=== PATIENT | male | born 1995 | race Caucasian/White ===

== ENCOUNTER 2020-03-28 16:52 | Emergency (ER) | payer OTHER, SELFPAY ==
--- NOTE | ~2020-03-28 | XR_ITS ---
EXAMINATION: XR chest 2V EXAM DATE: 03/28/2020 17:32 INDICATION: Right-sided chest pain, symptoms 3 days. TECHNIQUE: Frontal and lateral projections of the chest obtained and reviewed. There is no prior claudia dy for comparison. FINDINGS: The lungs are clear. There are no pleural effusions. The cardiomediastinal silhouette is within normal limits. There is no pneumothorax suspected. The bones and soft tissues are unremarkab le. IMPRESSION: No acute cardiopulmonary findings. Reviewed, dictated and finalized at location A.
--- NOTE | 2020-03-28 16:53 | ECG_ITS ---
Measurements Intervals [place] Rate: 97 P: 21 [place]: 150 QRS: 38 QRSD: 89 T: -3 QT: 335 QTc: 426 Interpretive Statements SINUS RHYTHM DELAYED PRECORDIAL R/S TRANSITION NONSPECIFIC ST & T-WAVE ABNORMALITY- INFERIOR LEADS BASELINE ARTIFACT- III, AVF BORDERLINE ECG Electronically Signed On 03-28-2020 17:56:31 CDT by Miguel Wang D.O.
[2020-03-28 16:57] VITALS: BP 135/116; PULSE 95; RESP 18; TEMP 36.2; O2SAT 95
[2020-03-28 17:15] LABS: Basophils Percent Auto 0.3 % (0.2-1.2); Eosinophils Absolute Auto 0.2 K/mm3 (0-0.3); Eosinophils Percent Auto 1.8 % (0-4.4); Hematocrit 48.8 % (42.0-52.0); Hemoglobin 16.4 g/dL (14.0-18.0); Immature Granulocyte Absolute 0.03 K/mm3 (0.00-0.031); Immature Granulocyte Percent A 0.2 % (0-0.5); Lymphocytes Absolute Auto 3.33 K/mm3 (0.9-3.2); Lymphocytes Percent Auto 26.5 % (18.3-44.2); Mean Corpuscular HGB Conc 33.6 g/dl (32-36); Mean Corpuscular Hemoglobin 29.1 pg (26-34); Mean Corpuscular Volume 86.5 fl (80-100); Monocytes Absolute Auto 0.8 K/mm3 (0.1-0.6); Monocytes Percent Auto 6.5 % (2.6-8.5); Neutrophils Absolute Auto 8.1 K/mm3 (1.3-6.7); Neutrophils Percent Auto 64.7 % (45.5-73.1); Platelet Count Result 300 k/mm3 (150-375); Red Blood Count 5.64 M/mm3 (4.6-6.20); Red Cell Distribution Width 13.1 % (11.5-14.5); White Blood Count 12.6 K/mm3 (4.5-10.0)
[2020-03-28 17:25] LABS: Prothrombin Time 12.7 Seconds (11.1-14.7)
[2020-03-28 17:26] LABS: Partial Thromboplastin Time 30.9 SECONDS (22.3-36.8)
[2020-03-28 17:27] LABS: Anion Gap 12.2 mmol/L (7-16); Blood Urea Nitrogen 13 mg/dL (9-20); Calcium 9.6 mg/dL (8.4-10.2); Carbon Dioxide 29 mmol/L (22-30); Chloride 103 mmol/L (98-107); Estimated CRCL calculation 198 ml/min; Estimated Glomerular Filt Rate > 60; Glucose 98 mg/dL (75-110); Potassium 4.2 mmol/L (3.4-5.0); Sodium 140 mmol/L (137-145)
[2020-03-28 17:39] LABS: Troponin I < 0.012 ng/mL (0.000-0.034)
[2020-03-28 18:43] VITALS: PULSE 94; RESP 20; O2SAT 99
[2020-03-28 18:44] VITALS: BP 163/92
[2020-03-28] MEDS: ASPIRIN 81 MG CHEWABLE TABLET 324 MG PO (18:45)
[2020-03-28] MEDS: KETOROLAC (*BKC) 60 MG/2 ML VIAL IM (19:29)
--- NOTE | 2020-03-28 19:41 | ED.CHESTPAIN ---
HPI - Chest Pain General Chief Complaint: Chest Pain <Miko Simpson PA-C - Last Filed: 03/28/20 19:48> Stated Complaint: Chest Pain <Miko Simpson PA-C - Last Filed: 03/28/20 19:48> Time Seen by Provider: 03/28/20 18:56 <YONATHAN Tijerina Last Filed: 03/28/20 19:48> Source: patient and family <YONATHAN Tijerina Last Filed: 03/28/20 19:48> Mode of arrival: ambulatory <Miko Simpson PA-C - Last Filed: 03/28/20 19:48> Limitations: no limitations <Miko Simpson PA-C - Last Filed: 03/28/20 19:48> History of Present Illness HPI narrative: Patient is a 24-year-old male who presents to emergency department for evaluation of right-sided chest pain that began Thursday noting aching pain to the right midsternal chest that does not radiate and is made worse with deep breathing patient notes he does have a smoker's cough denies any other URI symptoms or similar symptoms in the past patient has not taken anything for her symptoms denies any shortness of breath patient resting comfortably on arrival in no distress <Miko Simpson PA-C - Last Filed: 03/28/20 19:48> Related Data Allergies/Adverse Reactions: Allergies Allergy/AdvReac Type Severity Reaction Status Date / Time No Known Allergies Allergy Verified 03/28/20 17:01 <YONATHAN Tijerina Last Filed: 03/28/20 19:48> Review of Systems Review of Systems: All systems reviewed & are unremarkable except as noted in HPI and below <Miko Simpson PA-C - Last Filed: 03/28/20 19:48> PMFSH Past Medical History Medical History: Medical History (Updated 03/29/20 @ 00:00 by Bob Amezquita) Obesity <Miko Simpson PA-C - Last Filed: 03/28/20 19:48> Social History Social History: Social History Gender identity (if verbalized by the patient): Male <YONATHAN Tijerina Last Filed: 03/28/20 19:48> Exam Narrative: Exam Narrative: GENERAL: Well-appearing, obese, and in no acute distress. HEAD: Normocephalic, atraumatic. EYES: PERRLA and EOMI. ENT: Nares clear, no rhinorrhea or epistaxis. Mucous membranes moist. CHEST: Clear to auscultation. No respiratory distress. No wheezes rales or rhonchi. Reproducible right chest wall tenderness HEART: Regular rate and rhythm. No murmur heard. Normal peripheral pulses. ABDOMEN: Soft, nontender, nondistended EXTREMITIES: Normal range of motion. No edema. SKIN: Warm, dry, no rash. NEURO: No focal deficits. Alert and oriented x3. PSYCH: Normal mood and affect. <YONATHAN Tijerina Last Filed: 03/28/20 19:48> Course Course Emergency Course: Patient in the room in no distress aware of case findings treatment plan and diagnosis <YONATHAN Tijerina Last Filed: 03/28/20 19:48> Vital Signs Vital signs: Vital Signs Temperature 97.2 F L 03/28/20 16:57 Pulse Rate 95 03/28/20 16:57 Respiratory Rate 18 03/28/20 16:57 Blood Pressure 135/116 H 03/28/20 16:57 Pulse Oximetry 95 03/28/20 16:57 Temperature 97.2 F L 03/28/20 16:57 Pulse Rate 105 H 03/28/20 20:35 Respiratory Rate 20 03/28/20 20:35 Blood Pressure 155/91 H 03/28/20 20:35 Pulse Oximetry 100 03/28/20 20:35 <YONATHAN Tijerina Last Filed: 03/28/20 19:48> Vital Signs Temperature 97.2 F L 03/28/20 16:57 Pulse Rate 95 03/28/20 16:57 Respiratory Rate 18 03/28/20 16:57 Blood Pressure 135/116 H 03/28/20 16:57 Pulse Oximetry 95 03/28/20 16:57 Temperature 97.2 F L 03/28/20 16:57 Pulse Rate 105 H 03/28/20 20:35 Respiratory Rate 20 03/28/20 20:35 Blood Pressure 155/91 H 03/28/20 20:35 Pulse Oximetry 100 08/05/20 20:35 <Agueda Patton MD - Last Filed: 04/03/20 12:12> MDM - Chest Pain MDM Narrative Medical decision making narrative: Patients EKGs and labs are without significant high risk changes. Cardiac risk factors were
[2020-03-28 20:35] VITALS: BP 155/91; PULSE 105; RESP 20; O2SAT 100
== END 2020-03-28 20:35 | disposition home or self-care (01) ==
PROVIDERS: Emergency Provider General Practice
DX: R07.9 Chest pain, unspecified (principal); E66.9 Obesity, unspecified; Z68.44 Body mass index [BMI] 60.0-69.9, adult
CPT/HCPCS: 36415; 71046; 80048; 84484; 85025; 85610; 85730; 93005; 96372; 99284; A9270; J1885

== ENCOUNTER 2022-06-17 13:30 | Outpatient (CLI) | payer OTHER, SELFPAY ==
[2022-06-17 13:54] LABS: Basophils Absolute Auto 0.1 K/mm3 (0.0-0.1); Basophils Percent Auto 0.7 % (0.2-1.2); Eosinophils Absolute Auto 0.2 K/mm3 (0-0.3); Eosinophils Percent Auto 2.6 % (0-4.4); Hematocrit 47.6 % (42.0-52.0); Immature Granulocyte Absolute 0.03 K/mm3 (0.00-0.031); Immature Granulocyte Percent A 0.3 % (0-0.5); Lymphocytes Absolute Auto 1.79 K/mm3 (0.9-3.2); Lymphocytes Percent Auto 20.6 % (18.3-44.2); Mean Corpuscular HGB Conc 31.5 g/dl (32-36); Mean Corpuscular Volume 91.9 fl (80-100); Mean Platelet Volume 10.5 fl (7.4-10.4); Monocytes Absolute Auto 0.5 K/mm3 (0.1-0.6); Monocytes Percent Auto 5.4 % (2.6-8.5); Neutrophils Absolute Auto 6.1 K/mm3 (1.3-6.7); Neutrophils Percent Auto 70.4 % (45.5-73.1); Platelet Count Result 246 k/mm3 (150-375); Red Blood Count 5.18 M/mm3 (4.6-6.20); White Blood Count 8.7 K/mm3 (4.5-10.0)
[2022-06-17 14:04] LABS: Hemoglobin A1C 5.8 % (<5.7)
[2022-06-17 14:09] LABS: Alanine Aminotransferase 38 U/L (6-50); Albumin Level 3.9 g/dL (3.5-5.1); Alkaline Phosphatase 105 U/L (38-126); Anion Gap 9 mmol/L (8-16); Aspartate Amino Transferase 30 U/L (17-59); Bilirubin,Total 0.5 mg/dL (0.2-1.3); Blood Urea Nitrogen 12 mg/dL (9-20); Calcium 8.4 mg/dL (8.4-10.2); Carbon Dioxide 30 mmol/L (22-30); Chloride 100 mmol/L (98-107); Cholesterol 193 mg/dL (0-200); Estimated Glomerular Filt Rate > 60; Glucose 105 mg/dL (65-110); HDL Direct 35 mg/dL; Potassium 4.2 mmol/L (3.4-5.0); Sodium 139 mmol/L (137-145); Triglycerides 80 mg/dL (<150)
[2022-06-17 14:15] LABS: D Dimer 0.52 ug/mL (<0.48)
[2022-06-17 14:19] LABS: NT Pro B Type Natriuretic Pept 67 pg/mL (5-100)
[2022-06-17 14:21] LABS: LDL Cholesterol Direct 134 mg/dL
[2022-06-17 15:15] LABS: Folic Acid 7.2 ng/mL (2.76->20)
== END 2022-06-17 13:31 | disposition home or self-care (01) ==
PROVIDERS: PCP Family Medicine Sports Medicine; Visit Provider Family Medicine Sports Medicine
DX: Z00.00 Encounter for general adult medical examination without abnormal findings (principal); R60.0 Localized edema; E66.9 Obesity, unspecified
CPT/HCPCS: 36415; 80053; 80061; 82607; 82746; 83036; 83880; 85025; 85380

== ENCOUNTER 2023-09-18 01:23 | Emergency (ER) | payer OTHER, SELFPAY ==
--- NOTE | ~2023-09-18 | XR_ITS ---
Left Shoulder Technique: AP and scapular Y views were obtained. Clinical History: Pain Findings: No fracture or dislocation is seen. Possible inferior subluxation of the humeral head on Gr ashey view, but alignment appears unremarkable in the remaining views. The glenohumeral and acromiocl avicular joint spaces are otherwise preserved. Soft tissues are unremarkable. Impression: Possible inferior subluxation of humeral head on the Grashey view, outer alignment appears unremarkab le on other views. Reviewed, dictated and finalized at location M. [employer] Impression: Possible inferior subluxation of humeral head on the Grashey view, outer alignm ent appears unremarkable on other views.
[2023-09-18 01:29] VITALS: BP 158/112; PULSE 102; RESP 18; TEMP 36.8; O2SAT 98
--- NOTE | 2023-09-18 01:41 | ED_ITS ---
HPI - General Adult General Chief complaint: Extremity Problem,Nontraumatic Stated complaint: L shoulder pain Related Data Allergies Allergy/AdvReac Type Severity Reaction Status Date / Time No Known Allergies Allergy Verified 03/28/20 17:01 [facility] Past Medical History Medical History (Updated 03/29/20 @ 00:00 by Bob Amezquita) Obesity Social History Social History Gender identity (if verbalized by the patient): Male Course Vital Signs Vital signs: Vital Signs Temperature 36.8 C 09/18/23 01:29 Pulse Rate 102 H 09/18/23 01:29 Respiratory Rate 18 09/18/23 01:29 Blood Pressure 158/112 H 09/18/23 01:29 Pulse Oximetry 98 09/18/23 01:29 Oxygen Delivery Room Air 09/18/23 01:29 Temperature 36.8 C 09/18/23 01:29 Pulse Rate 102 H 09/18/23 01:29 Respiratory Rate 18 09/18/23 01:29 Blood Pressure 158/112 H 09/18/23 01:29 Pulse Oximetry 98 09/18/23 01:29 Oxygen Delivery Room Air 09/18/23 01:29 Medical Decision Making Vital Signs Vital Signs: Vital Signs Temperature 36.8 C 09/18/23 01:29 Pulse Rate 102 H 09/18/23 01:29 Respiratory Rate 18 09/18/23 01:29 Blood Pressure 158/112 H 09/18/23 01:29 Pulse Oximetry 98 09/18/23 01:29 Oxygen Delivery Room Air 09/18/23 01:29 Temperature 36.8 C 09/18/23 01:29 Pulse Rate 102 H 09/18/23 01:29 Respiratory Rate 18 09/18/23 01:29 Blood Pressure 158/112 H 09/18/23 01:29 Pulse Oximetry 98 09/18/23 01:29 Oxygen Delivery Room Air 09/18/23 01:29 Discharge Plan Discharge Prescriptions: No Action ibuprofen [IBU] 600 mg tablet 600 mg PO QID PRN (Reason: fever or pain) Qty: 7 0RF Follow-up/Referrals: PHYSICIAN NOT ON STAFF,NONSTAFF [Primary Care Provider] -
--- NOTE | 2023-09-18 02:38 | ECG_ITS ---
Measurements Intervals [place] Rate: 88 P: 16 [place]: 151 QRS: 45 QRSD: 97 T: 11 QT: 359 QTc: 436 Interpretive Statements SINUS RHYTHM NORMAL ECG COMPARED TO ECG 03/28/2020 16:58:06 NO SIGNIFICANT CHANGES Electronically Signed On 09-18-2023 6:15:59 [employer] by Miguel Wang D.O.
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
[2023-09-18] MEDS: KETOROLAC (*BKC) 60 MG/2 ML VIAL IM (03:24)
[2023-09-18 04:00] VITALS: BP 154/98; PULSE 96; RESP 16; O2SAT 100
== END 2023-09-18 04:02 | disposition home or self-care (01) ==
LOC: ANHED 02:55
PROVIDERS: Emergency Provider Physician Assistant
DX: S46.912A Strain of unspecified muscle, fascia and tendon at shoulder and upper arm level, left arm, initial encounter (principal); E66.01 Morbid (severe) obesity due to excess calories; Z68.44 Body mass index [BMI] 60.0-69.9, adult; R93.6 Abnormal findings on diagnostic imaging of limbs; X58.XXXA Exposure to other specified factors, initial encounter
CPT/HCPCS: 73030; 93005; 96372; 99283; J1885

== ENCOUNTER 2023-11-21 18:47 | Emergency (ER) | payer OTHER, SELFPAY ==
[2023-11-21] VITALS (8 sets, daily range): BP systolic 130–155; BP diastolic 77–110; PULSE 94–106; RESP 15–27; TEMP 37; O2SAT 90–98
--- NOTE | ~2023-11-21 | XR_ITS ---
EXAMINATION: XR chest 2V DATE: 11/21/2023 19:07 INDICATION: Chest pain. TECHNIQUE: Frontal and lateral views of the chest were obtained on 3 radiographs. COMPARISON: Chest 2 views 03/28/2020 FINDINGS: There is no pneumonia, pleural effusion, or pneumothorax. Cardiomegaly is noted. IMPRESSION: 1. Cardiomegaly. Reviewed, dictated and finalized at location A. IMPRESSION: 1. Cardiomegaly.
--- NOTE | 2023-11-21 18:55 | ECG_ITS ---
Measurements Intervals [place] Rate: 97 P: 26 [place]: 154 QRS: 65 QRSD: 94 T: 14 QT: 353 QTc: 449 Interpretive Statements SINUS RHYTHM INCOMPLETE RIGHT BUNDLE BRANCH BLOCK BORDERLINE ECG COMPARED TO ECG 09/18/2023 02:47:41 INCOMPLETE RIGHT BUNDLE-BRANCH BLOCK NOW PRESENT Electronically Signed On 11-21-2023 21:07:56 CDT by Miguel Wang D.O.
[2023-11-21 20:31] LABS: Alanine Aminotransferase 30 U/L (6-50); Alkaline Phosphatase 88 U/L (38-126); Anion Gap 8 mmol/L (4-12); Aspartate Amino Transferase 36 U/L (17-59); Bilirubin,Total 0.6 mg/dL (0.2-1.3); Blood Urea Nitrogen 13 mg/dL (9-20); Calcium 8.8 mg/dL (8.4-10.2); Carbon Dioxide 28 mmol/L (22-30); Chloride 103 mmol/L (98-107); Estimated CRCL calculation 293 ml/min; Estimated Glomerular Filt Rate > 60; Glucose 134 mg/dL (65-110); Lipase 54 U/L (23-300); Potassium 4.2 mmol/L (3.4-5.0); Sodium 139 mmol/L (137-145)
[2023-11-21 20:40] LABS: Troponin I < 0.012 ng/mL (0.000-0.034)
--- NOTE | 2023-11-21 22:21 | ED.RECABL ---
HPI - Recheck/Abnormal Lab/Rx General Chief Complaint: Recheck/Abnormal Lab/Rx Stated Complaint: elevated BP Time Seen by Provider: 11/21/23 22:19 Source: patient and family (mother) Mode of arrival: ambulatory Limitations: no limitations History of Present Illness HPI narrative: Patient presents with concern for elevated blood pressure. He has been checking it intermittently at home and it has been elevated. Also complaining of pain in his thorax. This was initially labeled chest pain from triage but patient points to lateral left breast and in left axilla. This has been occurring intermittently and is palliated and provoked by certain movements. He did recently help a friend move an engine into/out of a car. History of prior rotator cuff injury. No prior cardiac history. BP at home has been 155/110 and at times SBP 170s. He had occasionally felt flushed but no fevers. He has been trialing Tylenol 500mg x2 tablets q6 hours. PCP is Dr Dudley Related Data Allergies Allergy/AdvReac Type Severity Reaction Status Date / Time No Known Allergies Allergy Verified 03/28/20 17:01 [facility] Past Medical History Medical History Obesity Social History Social History Gender identity (if verbalized by the patient): Male Exam Narrative: GENERAL: Well-appearing, well-nourished, and in no acute distress. HEAD: Normocephalic, atraumatic. EYES: Non injected, non icteric ENT: Nares clear, no rhinorrhea or epistaxis. NECK: Supple. CHEST: Clear to auscultation though limited due to body habitus. No respiratory distress. No axillary lymphadenopathy. HEART: Regular rate and rhythm at the time of exam . ABDOMEN: Soft, morbidly obese. EXTREMITIES: Normal range of motion. 1+ bilateral LE edema. SKIN: Warm, dry, no rash. No rash/erythema/crepitus along chest or into axilla. NEURO: No focal deficits. Alert and oriented x3. PSYCH: Normal mood and affect. Course Vital Signs Vital signs: Vital Signs Temperature 98.6 F 11/21/23 18:49 Pulse Rate 106 H 11/21/23 18:49 Respiratory Rate 20 03/30/24 18:49 Blood Pressure 149/96 H 11/21/23 18:49 Pulse Oximetry 96 11/21/23 18:49 Oxygen Delivery Room Air 11/21/23 18:49 Temperature 98.6 F 11/21/23 18:49 Pulse Rate 100 11/22/23 00:32 Respiratory Rate 20 11/22/23 00:32 Blood Pressure 134/87 11/22/23 00:32 Pulse Oximetry 99 11/22/23 00:32 Oxygen Delivery Room Air 11/21/23 18:49 MDM - Recheck/Abnormal Lab/Rx MDM Narrative Medical decision making narrative: Patient presents with concern for elevated blood pressure, with several elevated readings at home, sometimes while having pain but multiple others when not. Initial cc notes chest pain but it is actually lateral to his left breast and slightly into left axila. I do suspect MSK given he recently helped a friend with an engine and his symptoms are palliated and provoked by movement. No evidence of torn pec muscle on exam. Also considered shingles but no rash. GOod ROM and neurovascularly intact. In the ED he is afebrile with VS notable for hypertension and mild tachycardia. prior ED visits are reviewed and patient has had multiple elevated blood pressure during these encounters. While those could have been attributed to pain, patient does endorse that he has been keeping a log of his blood pressure readings at home when not in pain they have been similarly elevated. For this reason, will discharge with a prescription for antihypertensive plans for patient to follow-up. I did discuss this with patient's mother who agreed, verifies understanding. He will continue to keep a log of his blood pressure readings both prior to and now after treatment and take this to his PCP for further monitoring/possible titration. Discharged in stable condition. Lab Data 11/21/23 23:13
[2023-11-21 23:19] LABS: Basophils Percent Auto 0.3 % (0.2-1.2); Eosinophils Absolute Auto 0.2 K/mm3 (0-0.3); Eosinophils Percent Auto 1.8 % (0-4.4); Hematocrit 43.7 % (42.0-52.0); Hemoglobin 13.8 g/dL (14.0-18.0); Immature Granulocyte Absolute 0.04 K/mm3 (0.00-0.031); Immature Granulocyte Percent A 0.3 % (0-0.5); Lymphocytes Absolute Auto 2.63 K/mm3 (0.9-3.2); Lymphocytes Percent Auto 20.5 % (18.3-44.2); Mean Corpuscular HGB Conc 31.6 g/dl (32-36); Mean Corpuscular Hemoglobin 28.9 pg (26-34); Mean Corpuscular Volume 91.4 fl (80-100); Mean Platelet Volume 10.2 fl (7.4-10.4); Monocytes Absolute Auto 0.8 K/mm3 (0.1-0.6); Monocytes Percent Auto 5.9 % (2.6-8.5); Neutrophils Absolute Auto 9.1 K/mm3 (1.3-6.7); Neutrophils Percent Auto 71.2 % (45.5-73.1); Platelet Count Result 277 k/mm3 (150-375); Red Blood Count 4.78 M/mm3 (4.6-6.20); White Blood Count 12.8 K/mm3 (4.5-10.0)
[2023-11-21 23:29] LABS: Prothrombin Time 13.8 Seconds (11.1-14.7)
[2023-11-21 23:30] LABS: Partial Thromboplastin Time 31.4 Seconds (22.3-36.8)
[2023-11-21 23:40] LABS: NT Pro B Type Natriuretic Pept < 20 pg/mL (19.9-100)
[2023-11-22 00:32] VITALS: BP 134/87; PULSE 100; RESP 20; O2SAT 99
== END 2023-11-22 00:34 | disposition home or self-care (01) ==
PROVIDERS: Student in an Organized Health Care Education/Training Program; Emergency Provider Student in an Organized Health Care Education/Training Program; PCP Family Medicine Sports Medicine
DX: I10 Essential (primary) hypertension (principal); D72.829 Elevated white blood cell count, unspecified; D64.9 Anemia, unspecified; E66.9 Obesity, unspecified; Z68.45 Body mass index [BMI] 70 or greater, adult
CPT/HCPCS: 36415; 71046; 80053; 83690; 83880; 84484; 85025; 85610; 85730; 93005; 99284

== ENCOUNTER 2024-01-26 22:51 | Emergency (ER) | payer OTHER, SELFPAY ==
[2024-01-26 22:56] VITALS: BP 192/98; PULSE 116; RESP 37; TEMP 36.8; O2SAT 93
[2024-01-26 23:19] LABS: Basophils Percent Auto 0.2 % (0.2-1.2); Eosinophils Absolute Auto 0.2 K/mm3 (0-0.3); Eosinophils Percent Auto 1.3 % (0-4.4); Hematocrit 43.8 % (42.0-52.0); Hemoglobin 14.1 g/dL (14.0-18.0); Immature Granulocyte Absolute 0.07 K/mm3 (0.00-0.031); Immature Granulocyte Percent A 0.5 % (0-0.5); Lymphocytes Absolute Auto 2.76 K/mm3 (0.9-3.2); Lymphocytes Percent Auto 20.8 % (18.3-44.2); Mean Corpuscular HGB Conc 32.2 g/dl (32-36); Mean Corpuscular Hemoglobin 28.9 pg (26-34); Mean Corpuscular Volume 89.8 fl (80-100); Mean Platelet Volume 10.8 fl (7.4-10.4); Monocytes Absolute Auto 0.8 K/mm3 (0.1-0.6); Monocytes Percent Auto 6.2 % (2.6-8.5); Neutrophils Absolute Auto 9.4 K/mm3 (1.3-6.7); Platelet Count Result 284 k/mm3 (150-375); Red Blood Count 4.88 M/mm3 (4.6-6.20); White Blood Count 13.3 K/mm3 (4.5-10.0)
[2024-01-26 23:38] LABS: Lactic Acid Reflex 1.6 mmol/L (0.7-2.0)
[2024-01-27 00:06] LABS: Alanine Aminotransferase 28 U/L (6-50); Albumin Level 4.2 g/dL (3.5-5.1); Alkaline Phosphatase 109 U/L (38-126); Anion Gap 6 mmol/L (4-12); Aspartate Amino Transferase 33 U/L (17-59); Bilirubin,Total 0.5 mg/dL (0.2-1.3); Blood Urea Nitrogen 16 mg/dL (9-20); Calcium 8.9 mg/dL (8.4-10.2); Carbon Dioxide 34 mmol/L (22-30); Chloride 98 mmol/L (98-107); Estimated CRCL calculation 230 ml/min; Estimated Glomerular Filt Rate > 60; Glucose 124 mg/dL (65-110); Potassium 3.5 mmol/L (3.4-5.0); Sodium 138 mmol/L (137-145)
[2024-01-27 00:37] VITALS: BP 163/92; PULSE 102; RESP 28; O2SAT 95
[2024-01-27 00:55] LABS: Prothrombin Time 13.9 Seconds (11.1-14.7)
[2024-01-27 01:02] LABS: D Dimer 0.51 ug/mL (<0.48)
--- NOTE | 2024-01-27 01:44 | ED.SKABFB ---
HPI - Skin/Abscess/Foreign Bdy General Chief complaint: Skin/Abscess/Foreign Body Stated complaint: redness in left leg Time Seen by Provider: 01/27/24 00:03 Source: patient Mode of arrival: ambulatory Limitations: no limitations History of Present Illness HPI narrative: Patient is a 28-year-old male who presents the ED with report of redness of his left lower leg. Patient reports he 1st noticed the redness over the last couple of days. States it feels more swollen than his right leg. Denies any trauma, wounds, rashes. Denies significant pain. Denies previous history of blood clots. Denies fevers, chest pain, shortness of breath. Related Data Allergies Allergy/AdvReac Type Severity Reaction Status Date / Time No Known Allergies Allergy Verified 01/26/24 23:02 Review of Systems Review of Systems: CONSTITUTIONAL: Denies fever, chills, or sweats. CARDIOVASCULAR: Denies chest pain RESPIRATORY: Denies dyspnea. SKIN: See HPI MUSCULOSKELETAL: See HPI. All systems reviewed & are unremarkable except as noted in HPI and below PMFSH Past Medical History Medical History Obesity Social History Social History Gender identity (if verbalized by the patient): Male Exam Narrative: GENERAL: Well appearing, morbidly obese with BMI of 82.2, non-toxic, in no acute distress. HEAD: Normocephalic, atraumatic. RESPIRATORY: Airway patent, respirations nonlabored. CARDIOVASCULAR: Regular rate and rhythm without murmurs, rubs, or gallops. pedal pulses intact. MUSCULOSKELETAL: Moves all extremities. No gross deformities. SKIN: Warm, dry, normal color. Diffuse erythema noted throughout left lower leg extending to approximately mid calf. Scattered areas of induration. No rashes, fluctuance, or evidence of abscess. no wounds.No significant tenderness throughout left lower leg. Mild swelling noted compared to right. Sensation is intact. Dry skin and some cracking/fissures noted to plantar foot. No drainage. NEURO: A&O X3. Speech clear. Cranial nerves II-XII grossly intact. Steady gait. No ataxic movements. PSYCHIATRIC: Appropriate mood and affect. Normal interaction. Course Vital Signs Vital signs: Vital Signs Temperature 98.3 F 01/26/24 22:56 Pulse Rate 116 H 01/26/24 22:56 Respiratory Rate 37 H 01/26/24 22:56 Blood Pressure 192/98 H 01/26/24 22:56 Pulse Oximetry 93 01/26/24 22:56 Oxygen Delivery Room Air 01/26/24 22:56 Temperature 98.3 F 01/26/24 22:56 Pulse Rate 103 H 01/27/24 02:35 Respiratory Rate 24 H 01/27/24 02:35 Blood Pressure 172/88 H 01/27/24 02:35 Pulse Oximetry 95 01/27/24 02:35 Oxygen Delivery Room Air 01/26/24 22:56 MDM - Skin/Abscess/Foreign Bdy MDM Narrative Medical decision making narrative: Patient presented to ED with several day history of redness to left lower leg, mild swelling noted. Exam concerning for possible cellulitis. CBC with white blood cell count of 13.3. Remainder of basic laboratory studies was unremarkable. Lactic acid was within normal limits at 1.6. Differential included DVT. D-dimer was obtained and mildly elevated to 0.51. Will set up patient for Venous Doppler ultrasound in the morning. He was given dose of Lovenox in the ED given elevated dimer. Confirmed with pharmacy appropriate dosing given patient's weight. Will cover for potential cellulitis with antibiotics. Given 1st dose of Keflex in the ED. patient advised to have close follow-up with his PCP for further evaluation. He was given strict return precautions. He is in agreement with plan. Discharged in stable condition. No trauma to leg to suggest need for plain films. Patient denies any chest pain or shortness of breath to suggest PE or need for further labs or imaging at this time. Medical Records Attestation: I reviewed the patient's me
[2024-01-27] MEDS: CEPHALEXIN 500 MG CAPSULE PO (01:48)
[2024-01-27] MEDS: ENOXAPARIN 30 MG/0.3 ML SYRINGE SUB-Q (02:22)
[2024-01-27] MEDS: ENOXAPARIN 120 MG/0.8 ML SYRINGE SUB-Q (02:23)
[2024-01-27 02:35] VITALS: BP 172/88; PULSE 103; RESP 24; O2SAT 95
== END 2024-01-27 02:36 | disposition home or self-care (01) ==
PROVIDERS: Emergency Medicine; Emergency Provider Physician Assistant; PCP Family Medicine Sports Medicine
DX: L03.116 Cellulitis of left lower limb (principal); R79.1 Abnormal coagulation profile; E66.9 Obesity, unspecified; Z68.45 Body mass index [BMI] 70 or greater, adult
CPT/HCPCS: 36415; 80053; 83605; 85025; 85380; 85610; 85730; 93971; 96372; 99284; A9270; J1650

== ENCOUNTER 2024-01-27 06:59 | Outpatient (CLI) | payer OTHER, SELFPAY ==
--- NOTE | ~2024-01-27 | US_ITS ---
EXAMINATION: US venous doppler [facility] DATE: 01/27/2024 08:00 INDICATION: Other specified soft tissue disorders. Left lower limb erythema. TECHNIQUE: Grayscale ultrasound images without and with compression and Doppler ultrasound images of the left lower extremity veins were obtained. COMPARISON: None. FINDINGS: The visualized portions of left common femoral vein, profunda (deep) femoral vein, femoral vein, popl iteal vein, and greater saphenous vein outflow are patent. The calf veins are not well visualized. IMPRESSION: 1. No deep venous thrombosis. Reviewed, dictated and finalized at location A.
== END 2024-01-27 07:00 | disposition home or self-care (01) ==
PROVIDERS: PCP Family Medicine Sports Medicine; Visit Provider Physician Assistant
DX: M79.89 Other specified soft tissue disorders (principal); R79.89 Other specified abnormal findings of blood chemistry
CPT/HCPCS: 93971

== ENCOUNTER 2024-03-03 22:02 | Emergency (ER) | payer OTHER, SELFPAY ==
[2024-03-03 22:04] VITALS: BP 158/106; PULSE 102; RESP 15; TEMP 36.3; O2SAT 98
--- NOTE | 2024-03-04 00:17 | ED.LOWEXIN ---
HPI - Extremity Injury (Lower) General Chief Complaint: Extremity Injury, Lower Stated Complaint: redness in left leg Time Seen by Provider: 03/03/24 23:13 Source: patient Mode of arrival: ambulatory Limitations: no limitations History of Present Illness HPI Narrative: This is a 28 year old male that presents to the ER for left lower extremity redness and edema. Ongoing since last night. Reports similar occurrence in the past and being diagnosed with cellulitis. He was treated with Keflex with relief. Denies fevers. Related Data Allergies Allergy/AdvReac Type Severity Reaction Status Date / Time No Known Allergies Allergy Verified 03/03/24 23:17 Review of Systems Review of Systems: CONSTITUTIONAL: Denies fever SKIN: Reports redness and swelling All systems reviewed & are unremarkable except as noted in HPI and below PMFSH Past Medical History Medical History (Updated 03/04/24 @ 01:33 by Elsie Nagy PA-C) History of hypertension Obesity Social History Social History (Updated 03/04/24 @ 00:52 by Elsie Nagy PA-C) Smoking status: Current some day smoker Tobacco type: e-cigarettes/vaping Gender identity (if verbalized by the patient): Male Exam Narrative: GENERAL: Well-appearing, well-nourished, and in no acute distress. HEAD: Normocephalic, atraumatic. EYES: EOMI. CHEST: Clear to auscultation. No respiratory distress. No wheezes rales or rhonchi HEART: Regular rate and rhythm. No murmur heard. Normal peripheral pulses. EXTREMITIES: Normal range of motion. Mild edema with overlying redness to the left lower extremity medial thigh into the lower leg. Normal DP pulse. Normal sensation SKIN: Warm, dry, no rash. NEURO: No focal deficits. Alert and oriented x3. PSYCH: Normal mood and affect Course Course Emergency Course: Patient in agreement with plan of care Vital Signs Vital signs: Vital Signs Temperature 97.4 F L 03/03/24 22:04 Pulse Rate 102 H 03/03/24 22:04 Respiratory Rate 15 03/03/24 22:04 Blood Pressure 158/106 H 03/03/24 22:04 Pulse Oximetry 98 03/03/24 22:04 Oxygen Delivery Room Air 03/03/24 22:04 Temperature 97.4 F L 03/03/24 22:04 Pulse Rate 104 H 03/04/24 01:33 Respiratory Rate 17 03/04/24 01:33 Blood Pressure 158/106 H 03/03/24 22:04 Pulse Oximetry 99 03/04/24 01:33 Oxygen Delivery Room Air 03/03/24 22:04 MDM - Extremity Injury (Lower) MDM Narrative Medical decision making narrative: Patient presents to the emergency department for redness and swelling of the left lower extremity. Ongoing since last night. He is afebrile and nontoxic appearing. His vitals are stable. CBC with mild leukocytosis to 10.4. CRP is mildly elevated. Patient will be started on oral antibiotics for cellulitis. He was instructed to have close follow-up with primary provider. He was given warnings to return to the ER Differential Diagnosis Differential diagnosis: Likely other (cellulitis) Lab Data Attestation: I reviewed the patient's lab results. 03/04/24 01:05 03/04/24 01:05 Labs: Lab Results 03/04/24 Range/Units 01:05 WBC 10.4 H (4.5-10.0) K/mm3 RBC 4.84 (4.6-6.20) M/mm3 Hgb 14.2 (14.0-18.0) g/dL Hct 43.9 (42.0-52.0) % MCV 90.7 (80-100) fl MCH 29.3 (26-34) pg MCHC 32.3 (32-36) g/dl RDW 14.4 (11.5-14.5) % Plt Count 237 (150-375) k/mm3 MPV 10.3 (7.4-10.4) fl Immature Gran % (Auto) 0.2 (0-0.5) % Neut % (Auto) 66.9 (45.5-73.1) % Lymph % (Auto) 25.5 (18.3-44.2) % Posey % (Auto) 5.0 (2.6-8.5) % Eos % (Auto) 2.1 (0-4.4) % Baso % (Auto) 0.3 (0.2-1.2) % Lymph # (Auto) 2.66 (0.9-3.2) K/mm3 Posey # (Auto) 0.5 (0.1-0.6) K/mm3 Eos # (Auto) 0.2 (0-0.3) K/mm3 Baso # (Auto) 0.0 (0.0-0.1) K/mm3 Abs Immat Gran (auto) 0.02 (0.00-0.031) K/mm3 Absolute Neuts (auto) 7.0 H (1.3-6.7) K/mm3 Absolute Nucleated RBC 0.000 (0.0-0.012) K/mm3 Nucleated RBC %
[2024-03-04 01:09] LABS: Basophils Percent Auto 0.3 % (0.2-1.2); Eosinophils Absolute Auto 0.2 K/mm3 (0-0.3); Eosinophils Percent Auto 2.1 % (0-4.4); Hematocrit 43.9 % (42.0-52.0); Hemoglobin 14.2 g/dL (14.0-18.0); Immature Granulocyte Absolute 0.02 K/mm3 (0.00-0.031); Immature Granulocyte Percent A 0.2 % (0-0.5); Lymphocytes Absolute Auto 2.66 K/mm3 (0.9-3.2); Lymphocytes Percent Auto 25.5 % (18.3-44.2); Mean Corpuscular HGB Conc 32.3 g/dl (32-36); Mean Corpuscular Hemoglobin 29.3 pg (26-34); Mean Corpuscular Volume 90.7 fl (80-100); Mean Platelet Volume 10.3 fl (7.4-10.4); Monocytes Absolute Auto 0.5 K/mm3 (0.1-0.6); Neutrophils Percent Auto 66.9 % (45.5-73.1); Platelet Count Result 237 k/mm3 (150-375); Red Blood Count 4.84 M/mm3 (4.6-6.20); Red Cell Distribution Width 14.4 % (11.5-14.5); White Blood Count 10.4 K/mm3 (4.5-10.0)
[2024-03-04 01:25] LABS: Anion Gap 7 mmol/L (4-12); Blood Urea Nitrogen 17 mg/dL (9-20); CRP 1.1 mg/dL (<1.0); Calcium 9.1 mg/dL (8.4-10.2); Carbon Dioxide 33 mmol/L (22-30); Chloride 98 mmol/L (98-107); Estimated CRCL calculation 301 ml/min; Estimated Glomerular Filt Rate > 60; Glucose 108 mg/dL (65-110); Sodium 138 mmol/L (137-145)
[2024-03-04 01:33] VITALS: PULSE 104; RESP 17; O2SAT 99
[2024-03-04] MEDS: CEPHALEXIN 500 MG CAPSULE PO (01:42)
[2024-03-04 01:47] LABS: Erythrocyte Sedimentation Rate 16 mm/hr (0-20)
== END 2024-03-04 01:45 | disposition home or self-care (01) ==
PROVIDERS: Emergency Provider Physician Assistant; PCP Family Medicine Sports Medicine
DX: L03.116 Cellulitis of left lower limb (principal); I10 Essential (primary) hypertension; E66.9 Obesity, unspecified; Z68.45 Body mass index [BMI] 70 or greater, adult; F17.290 Nicotine dependence, other tobacco product, uncomplicated
CPT/HCPCS: 36415; 80048; 85025; 85652; 86140; 99283; A9270

== ENCOUNTER 2024-03-13 13:37 | Emergency (ER) | payer OTHER, SELFPAY ==
[2024-03-13 14:00] VITALS: BP 149/100; PULSE 100; RESP 20; TEMP 36.6; O2SAT 95
--- NOTE | 2024-03-13 14:33 | ED.EAR ---
HPI - Ear Problem General Chief complaint: Ear Stated complaint: ear pain Time Seen by Provider: 03/13/24 14:16 Source: patient Mode of arrival: ambulatory Limitations: no limitations History of Present Illness HPI Narrative: This is a 28 year old male that presents to the ER for left ear pain. Ongoing over the last 2 days. Reports swimming yesterday and the pain worsening. Denies fever or drainage. Related Data Allergies Allergy/AdvReac Type Severity Reaction Status Date / Time No Known Allergies Allergy Verified 03/03/24 23:17 Review of Systems Review of Systems: CONSTITUTIONAL: Denies fever ENT: Reports otalgia. All systems reviewed & are unremarkable except as noted in HPI and below PMFSH Past Medical History Medical History (Updated 03/13/24 @ 15:49 by Elsie Nagy PA-C) History of hypertension Obesity Social History Social History (Updated 03/04/24 @ 00:52 by Elsie Nagy PA-C) Smoking status: Current some day smoker Tobacco type: e-cigarettes/vaping Gender identity (if verbalized by the patient): Male Exam Narrative: GENERAL: Well-appearing, well-nourished, and in no acute distress. HEAD: Normocephalic, atraumatic. EYES: EOMI. ENT: Right TM pearly santacruz non-bulging. Left external auditory canal is normal, there is some cerumen impaction, unable to see the TM NECK: Supple. No adenopathy EXTREMITIES: Normal range of motion. No edema. SKIN: Warm, dry, no rash. NEURO: No focal deficits. Alert and oriented x3. PSYCH: Normal mood and affect Course Course Emergency Course: Patient agrees with plan of care Vital Signs Vital signs: Vital Signs Temperature 97.8 F 03/13/24 14:00 Pulse Rate 100 03/13/24 14:00 Respiratory Rate 20 03/13/24 14:00 Blood Pressure 149/100 H 03/13/24 14:00 Pulse Oximetry 95 03/13/24 14:00 Oxygen Delivery Room Air 03/13/24 14:00 Temperature 97.8 F 03/13/24 14:00 Pulse Rate 100 03/13/24 14:00 Respiratory Rate 20 03/13/24 14:00 Blood Pressure 149/100 H 03/13/24 14:00 Pulse Oximetry 95 03/13/24 14:00 Oxygen Delivery Room Air 03/13/24 14:00 Procedures Ear Wax Removal Left Ear: Ear Wax Removal Date: 03/13/24 Ear Wax Removal Time: 15:30 Results: Re-examined: cerumen removed completely TM Examination: TM(s) erythematous and other (bulging) Ear Canal Exam: atraumatic Patient Tolerated Procedure: well and no complications Technique: ear canal irrigated Medical Decision Making MDM Narrative Medical decision making narrative: Patient presents to the emergency department for left ear pain. Patient noted to have some cerumen impaction. This was irrigated. Able to visualize his TM which is bulging, erythematous. Will be started on oral antibiotics for otitis media. He does also have mild erythema and edema of the distal external auditory canal. Will start topical antibiotics as well. Patient agrees with plan of care. He is to follow up with primary provider. He was given warnings to return to the ER Differential Diagnosis Differential Diagnosis: Otitis media, otitis externa, cerumen impaction Vital Signs Vital Signs: Vital Signs Temperature 97.8 F 03/13/24 14:00 Pulse Rate 100 03/13/24 14:00 Respiratory Rate 20 03/13/24 14:00 Blood Pressure 149/100 H 03/13/24 14:00 Pulse Oximetry 95 03/13/24 14:00 Oxygen Delivery Room Air 03/13/24 14:00 Temperature 97.8 F 03/13/24 14:00 Pulse Rate 100 03/13/24 14:00 Respiratory Rate 20 03/13/24 14:00 Blood Pressure 149/100 H 03/13/24 14:00 Pulse Oximetry 95 03/13/24 14:00 Oxygen Delivery Room Air 03/13/24 14:00 Critical Care Time Critical Care Time Critical Care Time: No Discharge Plan Discharge Clinical Impression: Otitis externa Qualifiers: Otitis externa type: swimmer's ear Chronicity: acute Laterality: left Qualified Code(s): H60.332 - Swimmer's ear, left ear
== END 2024-03-13 16:08 | disposition home or self-care (01) ==
PROVIDERS: Emergency Provider Physician Assistant; PCP Family Medicine Sports Medicine
DX: H60.332 Swimmer's ear, left ear (principal); H66.90 Otitis media, unspecified, unspecified ear; H61.22 Impacted cerumen, left ear; I10 Essential (primary) hypertension; F17.290 Nicotine dependence, other tobacco product, uncomplicated
CPT/HCPCS: 69209; 99283

== ENCOUNTER 2024-04-08 20:12 | Emergency (ER) | payer OTHER, SELFPAY ==
[2024-04-08 20:44] VITALS: BP 153/110; PULSE 110; RESP 20; TEMP 36.4; O2SAT 97
--- NOTE | 2024-04-08 20:51 | PC.NURSE ---
Pt ambulates to desk and states he will go to [facility] since he was just seen at the in [place]. This RN advised pt to stay and been seen. Pt declined any further treatment.
== END 2024-04-08 21:42 | disposition left against medical advice (07) ==
LOC: ANHED 21:08
PROVIDERS: PCP Family Medicine Sports Medicine
DX: Z04.89 Encounter for examination and observation for other specified reasons (principal)
CPT/HCPCS: 99199

== ENCOUNTER 2025-03-18 10:28 | Inpatient (IN) | payer OTHER, SELFPAY ==
[2025-03-18] VITALS (18 sets, daily range): BP systolic 115–199; BP diastolic 53–112; PULSE 81–146; RESP 14–28; TEMP 36.6–38.1; O2SAT 90–100; BMI 74.2
--- NOTE | ~2025-03-18 | XR_ITS ---
CHEST RADIOGRAPH CLINICAL HISTORY: CHEST PAIN . COMPARISON: 11/21/2023 TECHNIQUE: Single portable view of the chest. FINDINGS The cardiomediastinal silhouette is enlarged. Low lung volumes detected bilaterally, likely secondary to poor inspiratory effort. The visualized lung oconnell are clear. IMPRESSION: Low lung volumes, without focal infiltrate or effusion appreciated. Reviewed, dictated and finalized at location A.
--- OUTSIDE RECORDS SUMMARY | 2025-03-18 10:31 | XMS_ITS | Clinical Summary ---
Author Organization [facility] C Address [address] [place] [address] Care Team Providers Care Door Captain Name Role Phone Unavailable Primary Care Provider Unavailabl e Allergies No known active allergies Medications hydrocortisone (ANUSOL-HC) 2.5 % rectal cream Insert into the rectum 4 (four) times a day as needed for hemorrhoids (rectal discomfort) Apply to affected areas 30 g 4 Active hydroCHLOROthia zide (HYDRODIURIL) 25 mg tabletIndicatio ns:Hypertension , essential TAKE 1 TABLET BY MOUTH EVERY DAY 90 tablet 5 Active Active Problems Problem Noted Date Diagnosed Date Left leg swelling 05/19/2024 Assessment & Plan (05/30/2024 3:01 PM CDT): Not overly suspicious for acute clot, has been present x 5 months. Suspect more lymphedema origin post cellulitis. Labs ordered but referral to OT Lymphedema clinic for evaluation/tx. Assessment & Plan (05/19/2024 4:59 PM CDT): Left leg 6 cm larger in circumference than right on around the calf. He has mild stasis changes and some pitting edema bilaterally. Very difficult to evaluate his calves further due to his body habitus but there is no signs of cellulitis or open wounds. Minimal pain on palpation of the calf. I am worried that there may be risk for a occult DVT either in the calf veins or very proximal as a cause of the significant discrepancy between the left and right calf size. There is also potential risk for something like May-Thurner syndrome. He could have just component of severe varicose veins but again his exam is somewhat difficult due to his body habitus. I am unsure how to best evaluate for the suspected diagnosis with the affective imaging. An MRI venogram of the pelvis could be considered but I worry that the magnet may be too far away to evaluate the inferior vena cava and iliac veins. A formal venogram may ultimately be needed to assess but is is not something that I am familiar with ordering. Given him not quite sure how to best evaluate and work up the significant left greater than right leg swelling and edema I would like to have him see a vascular specialist for consultation. He is agreeable with this. Referral provided Prediabetes 11/26/2023 Assessment & Plan (12/30/2023 2:49 PM CDT): Chronic. Noted on most recent labs. Encouraged healthy diet, exercise, weight loss Mixed hyperlipidemia 11/26/2023 Marijuana use 11/23/2023 Hypertension, essential 11/23/2023 Assessment & Plan (05/30/2024 2:59 PM CDT): Continues HCTZ, updated labs ordered Assessment & Plan (05/19/2024 4:58 PM CDT): Chronic. HTN controlled. Cont prescription Rx as indicated in HPI under HTN diagnosis. Low sodium diet (DASH or Mediterranean), exercise, wt loss (if over weight) discussed Assessment & Plan (03/03/2024 6:25 PM CDT): Chronic. Blood pressure controlled in office today. Continue hydrochlorothiazide Assessment & Plan (12/30/2023 2:49 PM CDT): Chronic. It is controlled with the hydrochlorothiazide 25 mg daily. Continue. Check updated set of electrolytes and kidney function to monitor for intolerance. Work on diet, exercise, weight loss. Given patient's blood pressure and morbid obesity will refer for sleep medicine evaluation for possible sleep apnea as a contributing factor Assessment & Plan (11/23/2023 7:41 PM CDT): Hypertension is improved today, although I did discuss goal of blood pressure <120/80. Gave handouts from [employer] on BP and stroke, Understand Your Blood Pressure Number, What Can I Do to Improve My High Blood Pressure, and What is High Blood Pressure?. I asked him to continue to monitor blood pressure at home and bring readings with him for f/u in [address] Parks. Discussed if readings are regularly >140/90 then He is to contact us before. We'll get records from [facility]. He has outstanding labs from Dr. Parks. I asked him to get those labs done just prior to his office visit with her. Palpitations 11/23/2023 Assessment & Plan (11/23/2023 7:44 PM CDT): One time episode last night , occurred after taking hctz, but also occurred after smoking marijuana. He bought the marijuana on the street and it was a new bag. I am not sure what caused this, but confounding factors with marijuana from the street makes cause unclear. I cautioned if he has further episodes then he is to contact us or, if worsening episode with chest pain or shortness of breath, then to ER Class 3 severe obesity due t o excess calories without serious comorbidity with body mass index (BMI) greater than or equal to 70 in adult 10/23/2023 Assessment & Plan (11/07/2024 2:59 PM CDT): Pt has been working on weight loss. Has lost 25-26 pounds. Continue healthy dieting, working on weight loss Assessment & Plan (05/30/2024 2:59 PM CDT): Healthy, low carbohydrate lifestyle and exercise for 150min/week recommended. Assessment & Plan (05/19/2024 4:57 PM CDT): Chronic. Poorly controlled. Needs improvement. Encouraged weight loss. His body habitus made it technically difficult to evaluate his left lower extremity edema. He has had 2 lower extremity ultrasound to evaluate for DVT but both have had suboptimal visualization of the calf veins so they are unable to definitively rule out a clot. Assessment & Plan (03/03/2024 6:24 PM CDT): Chronic. Poorly controlled. Needs improvement. Patient need to work on diet and lifestyle. Monitor weight. A GLP 1 medication would be reasonable to help with weight loss if insurance would cover it the patient also needs to be working on diet and lifestyle changes Assessment & Plan (12/30/2023 2:49 PM CDT): Chronic. Poorly controlled. Needs improvement. Counseled on healthy diet, exercise, weight loss. Given patient's insurance is Medicaid there likely covering prescription weight loss drugs. He will continue working on diet and lifestyle changes Assessment & Plan (11/23/2023 7:41 PM CDT): BMI Follow-up includes: exercise counseling and education provided. Assessment & Plan (10/23/2023 1:34 PM COP BREAKER): Chronic. Poorly controlled. Needs improvement. Patient is working on healthy diet, exercise and weight loss. Given family history of diabetes and extreme obesity patient is at increased risk for diabetes and cholesterol related diseases. Screening labs are recommended. We will also check thyroid level to rule out hypothyroidism as a contributing factor to the obesity Engages in vaping 10/23/2023 Assessment & Plan (10/23/2023 1:34 PM COP BREAKER): Brief supportive counseling was provided. Patient was recommended to quit. He will consider Encounters Date Type Department Care Team Description 03/01/2025 Telephone [facility] Primary Care at [address] [address] No, Physician from Last 3 Months Immunizations Immunization Administration Dates Next Due DTP / HiB 12/27/1997 DTaP 01/06/2002,04/10/1997,02/09/1997 ,1996 Hep B, Adolescent or Pediatric 07/11/1997,1996,1996 IPV 01/06/2002 Influenza, Unspecified 08/24/2023(Deferr ed: Patient Refused),05/24/2023(Deferred: Patient Refused),08/24/2022(Deferred: Patient Refused) MMR 01/06/2002,10/12/1997 OPV 04/10/1997,02/09/1997,1996 Pneumococcal Conjugate 7-Valent 03/15/2001 Tdap 11/07/2024,01/11/2009 Varicella 01/11/2009,04/16/1998 Surgical History Surgery Date Site/Laterality Comments DENTAL SURGERY Medical History Medical History Date Comments Left shoulder pain Asthma as cjhild Cellulitis Diagnosed 2023 at [facility] Morbid obesity (HCC) Family History Medical History Relation Name Comments Diabetes Father Cancer Father's Brother unsure of p rimary Diabetes Mother Relation Name Status Comments Father Father's Brother Mother Other Social History Tobacco Use Types Packs/Day Years Used Date Smoking Tobacco: Every Day Vaping Last attempted to quit: 12/01/2023 Tobacco Cessation:Ready to Q uit: Not Asked Comments:Hx cigarettes 3-4 cig/day x 1 yr. was vapes daily. Quit November 2023 AUDIT-C Answer Date Recorded Frequency of Alcohol Consumption Not on file 03/31/2024 Q2: How many drinks containi ng alcohol do you have on a typical day when you are drinking? Patient does not drink Frequency of Binge Drinking Not on file 03/2024 PHQ-2 Answer Date Recorded PHQ-2 Total Score (If total score is 3 or more points, staff should administer the PHQ-9) 0 05/30/2024 PHQ-9 Answer Date Recorded PHQ-9 Total Score 6 12/30/2023 Personal Safety Answer Date Recorded Have you ever been in or are you currently in a harmful physical or emotional relationship or is someone making you feel afraid or unsafe? Denies 04/09/2024 Sex and Gender Information Value Date Recorded Sex Assigned at Not on file Legal Sex Male 3:27 PM COP BREAKER Gender Identity Male 03/08/2024 7:01 PM CDT Sexual Orientation Not on file Obstetrics History Last Filed Vital Signs Vital Sign Reading Time Taken Comments Blood Pressure 130/84 11/07/2024 2:30 PM CDT Pulse 101 11/07/2024 2:30 PM CDT Temperature 36.3 C (97.3 F) 11/07/2024 2:30 PM CDT Respiratory Rate 20 11/07/2024 2:30 PM CDT Oxygen Saturation 92% 11/07/2024 2:30 PM CDT Inhaled Oxygen Concentration - - Weight 218.3 kg (481 lb 3.2 oz) 11/07/2024 2:30 PM CDT Height 170.2 cm (5' 7) 11/07/2024 2:30 PM CDT Body Mass Index 75.37 11/07/2024 2:30 PM CDT Plan of Treatment Health Maintenance Due Date Last Done Comments Pneumococcal vaccine <65 (2 of 2 - PPSV23) 2002 03/15/2001 HPV Vaccines (1 - 3-dose SCD M series) 2023 Regular Well Visit/Exam 18-64 10/22/2024 10/23/2023 Influenza Vaccine (#1) 2025 Depression Screening 05/30/2025 05/30/2024, 03/31/2024, 12/30/2023, Additional history exists DTaP/Tdap/Td Vaccine (8 - Td or Tdap) 11/07/2034 11/07/2024, 01/11/2009, 01/06/2002, Additional history exists Hepatitis B Screening Completed 07/11/1997 , 1996, 1996 Varicella Vaccines Completed 01/11/2009, 04/16/1998 Hepatitis C Screening Completed 11/25/2023 Procedures Procedure Name Priority Date/Time Associated Diagnosis Comments HEPATITIS C ANTIBODY Routine 11/25/2023 9:58 AM CDT Routine physical examination Need for hepatitis C screening test Class 3 severe obesity due to excess calories without serious comorbidity with body mass index (BMI) greater than or equal to 70 in adult (HCC) from Last 3 Months or Most Recently Relevant to Health Maintenance Results * Hepatitis C antibody Blood (11/25/2023 9:58 AM CDT) Hep C Ab Nonreactive Nonreactive Comment: Interpretive Data Nonreactive: Antibodies to HCV not detected. Does NOT exclude the possibility of recent exposure to HCV. Equivocal: Equivocal for HCV antibodies. Supplemental molecular testing will be automatically performed to determine infection status in accordance with current CDC screening recommendations. Reactive: Positive for HCV antibodies. This may represent current or past HCV infection. Supplemental molecular testing will be automatically performed to determine current infection status in accordance with current CDC screening recommendations. Interpretive data was last revised on 2019. Blood 11/25/2023 9:58 AM CDT 11/25/2023 3:04 PM CDT Linda Parks MD LAB MICROBIOLOGY - GEN ERAL ORDERABLES [place] - [place] [id number] [address] [place] [address] from Last 3 Months or Most Recently Relevant to Health Maintenance [facility]
--- OUTSIDE RECORDS SUMMARY | 2025-03-18 10:31 | XMS_ITS | Continuity of Care Document ---
Author Organization [facility] Address [address] [place] [address] [address] [place] [address] Phone Care Team Providers Care Route Sales Manager Name Role Phone Louis Cdae Unavailable Unavailable Procedures Procedure Date Eye Exam, New Patient Refraction Vision Svcs Frames Purchases SV Hi Index Sph [facility] To +/- 4 08 Lens-Index>1.66Plas;>1.80Glas 8 Tax - Medical Advance Directives Directive Yes / No Effective Date File Name No Information Encounters Encounter Description Practice Location Reason(s) For Visit Diagnoses Date Provider Providers Copied on Encounter [facility], [address] [place] [address] [address], [place], [place], [id number], [place] tel:[phone] [facility] No Information 8 Alyssia Myers. [address] [facility] [address], [place], [address], [place]. tel:[phone] [facility], [address] [place] [address] [address], [place], [place], [id number], [place] tel:[phone] [facility] No Information 8 [facility]. [address] [facility], [address], [place], [place], [id number], [place]. tel:[phone] Referring Provider: Louis Cade, [address], [address]. tel:[phone] humphreys Provider: Shruthi Acosta, [address] [facility], [place], [address]. tel:[phone] Family History Family Member Type Diagnosis Age At Onset No Information Payers Payer name Insurance type Covered alliance party ID Authoriza tion(s) No Information Social History Type Description Quantity Date Captured Comments Sex Male Smoking Status No Information Chief Complaint And Reason For Visit No Information Reason For Referral Reason For Referral No Information History Of Present Illness Encounter Date Complaint History Of Prese nt Illness No Information Functional Status Date Functional Assessmen t No Information Instructions Date Instruction Additional Infor mation No Information Assessments Type Assessment Date No Information Patient Care Teams Name Effective Dates (start - stop) Status Members No Information
--- OUTSIDE RECORDS SUMMARY | 2025-03-18 10:31 | XMS_ITS | Referral Summary ---
Author Organization [facility] C Address [address] [place] [address] Care Team Providers Care Power Transmission Engineer Name Role Phone Unavailable Primary Care Provider Unavailabl e Encounters Date Type Department Care Team Description 03/01/2025 Telephone [facility] Primary Care at [address] [address] No, Physician from Last 3 Months Allergies No known active allergies Medications hydrocortisone [...] contact us before. We'll get records from [facility]. He has outstanding labs from Dr. Parks. [...] provided. Assessment & Plan (10/23/2023 1:34 PM LICENSED NURSING ASSISTANT): Chronic. Poorly controlled. Needs improvement. Patient is [...] 10/23/2023 Assessment & Plan (10/23/2023 1:34 PM LICENSED NURSING ASSISTANT): Brief supportive counseling was provided. Patient was recommended to quit. He will consider Immunizations Immunization Administration Dates Next Due DTP / HiB 12/27/1997 DTaP 01/06/2002,04/10/1997,02/09/1997 ,1996 Hep B, Adolescent or Pediatric 07/11/1997,1996,1996 IPV 01/06/2002 Influenza, Unspecified 08/24/2023(Deferr ed: Patient Refused),05/24/2023(Deferred: Patient Refused),08/24/2022(Deferred: Patient Refused) MMR 01/06/2002,10/12/1997 OPV 04/10/1997,02/09/1997,1996 Pneumococcal Conjugate 7-Valent 03/15/2001 Tdap 11/07/2024,01/11/2009 Varicella 01/11/2009,04/16/1998 Social History Tobacco Use Types Packs/Day Years [...] on file Legal Sex Male 3:27 PM LICENSED NURSING ASSISTANT Gender Identity Male 03/08/2024 7:01 PM CDT Sexual Orientation Not on file Last Filed Vital Signs Vital Sign Reading [...] 11/07/2024 2:30 PM CDT Plan of Treatment Not on file Procedures Procedure Name Priority Date/Time Associated Diagnosis [...] ERAL ORDERABLES Edited Result - Final [place] [id number] [address] Department [place] [address] from Last 3 Months or Most Recently Relevant to Health Maintenance Insurance [facility]
--- NOTE | 2025-03-18 10:38 | ECG_ITS ---
Test Date: 2025-03-18 10:38:19 Measurements Intervals [place] Rate: 141 P: 62 DC: 153 QRS: 54 QRSD: 100 T: 39 QT: 361 QTc: 555 Interpretive Statements SINUS TACHYCARDIA MINIMAL ST DEPRESSION [0.025+ mV ST DEPRESSION] ABNORMAL RHYTHM ECG No previous ECG available for comparison Electronically Signed On 03-19-2025 14:06:45 CDT by Duran Denny M.D.
--- NOTE | 2025-03-18 10:41 | ED_ITS ---
HPI - Arrhythmia/Palpitations General Chief Complaint: Arrhythmia/Palpitations Stated Complaint: palpitations Time Seen by Provider: 03/18/25 10:31 Source: patient, family, RN notes reviewed and old records reviewed Mode of arrival: ambulatory Limitations: no limitations History of Present Illness HPI narrative: THis is a 29 year old male who presents with his mother for evaluation of heart racing and left arm pain. He states that he used cocaine last night and he also took 400 mg of THC edible this morning. He told his mother around 9 am that he needed to go to ER. He feels like his heart is racing and he also has left arm pain. He dneies drinking alcohol complaint: heart racing Related Data Allergies Allergy/AdvReac Type Severity Reaction Status Date / Time No Known Allergies Allergy Verified 03/18/25 10:44 [facility] Past Medical History Medical History History of hypertension Obesity Social History Social History (Updated 03/18/25 @ 10:43 by Agueda Patton MD) Smoking status: Current some day smoker Tobacco type: e-cigarettes/vaping Substance use: current Substance use type: marijuana and crack/cocaine Gender identity (if verbalized by the patient): Male Exam 2 Const: General: no acute distress Nutritional Appearance: obese O rientation/consciousness: patient oriented x3 HENMT: Head: normal to inspection Eyes: Pupils: Equal, round and reactive pupils present EOM: EOMs intact bilaterally Neck: Neck: normal visual inspection Chest: Chest palpation & inspection: normal inspection of the chest Resp: Effort & Inspection: normal respiratory effort Auscultation: clear to auscultation bilaterally Cardio: Rate: tachycardic Rhythm: regular rhythm Heart sounds: no murmurs GI: GI Palp: Yes Soft to palpation, No Tenderness to palpation present (GI), No Guarding due to palpation present (GI) and No Rigid due to palpation A uscultation: normal bowel sounds Skin: General skin exam: normal color Rashes: no rashes Wounds: no wounds Neuro: General: patient oriented x3, moves all extremities and CN's II-XI intact bilaterally Extrem: General: normal to inspection Psych: Mental Status: mental status grossly normal Affect: normal affect Attitude: cooperative Course Vital Signs Vital signs: Vital Signs Pulse Rate 141 H 03/18/25 10:33 Respiratory Rate 18 03/18/25 10:33 Blood Pressure 199/99 H 03/18/25 10:33 Pulse Oximetry 100 03/18/25 10:33 Oxygen Delivery Room Air 03/18/25 10:33 Temperature 97.8 F 03/18/25 13:46 Pulse Rate 119 H 03/18/25 13:46 Respiratory Rate 28 H 03/18/25 13:46 Blood Pressure 138/60 03/18/25 13:46 Pulse Oximetry 99 03/18/25 13:46 Oxygen Delivery Nasal Cannula 03/18/25 10:55 Oxygen Flow Rate 2 03/18/25 10:55 MDM - Arrhythmia/Palpitations MDM Narrative Medical decision making narrative: Patient presented with sinus tachycardia , hypertension , heart rate 140s after cocaine and THC use. He complains of left arm pain and heart racing. I ordered 1 liter NS bolus and 1 mg IV ativan for his symptoms. lab, EKG, chest xray ordered. Patient's heart rate has decreased in ER with treatment. labs show hypokalemia 2. 7. and leukocytosis of 17. No infectious source found to suggest sepsis. With low potassium and continued tachycardia will admit for potassium replacement. Differential Diagnosis Differential diagnosis: Likely palpitations, anxiety, sinus tachycardia, supraventricular tachycardia and other (electrolyte abnormality, drug abuse) Medical Records Attestation: I reviewed the patient's medical records. Lab Data Attestation: I reviewed the patient's lab results. 03/18/25 10:47 03/18/25 10:46 Labs: Lab Results 03/18/25 03/18/25 03/18/25 Range/Units 10:46 10:47 11:18 WBC 17.9 H (4.5-10.0) K/mm3 RBC 5.23 (4.6-6.20) M/mm3 Hgb 15.1 (14.0-18.0) g/dL Hct 46.9 (42.0-52.0) % MCV 89.7 (80-100) fl MCH 28.9 (26-34) pg MCHC 32.2 (32-36) g/dl RDW 13.1 (11.5-14.5) % Plt Count 388 H D (150-375) k/mm3 MPV 10.7 H (7.4-10.4) fl Immature Gran % (Auto) 0.4 (0-0.5) % Neut % (Auto) 57.9 (45.5-73.1) % Lymph % (Auto) 32.0 (18.3-44.2) % [place] % (Auto) 6.1 (2.6-8.5) % Eos % (Auto) 3.1 (0-4.4) % Baso % (Auto) 0.5 (0.2-1.2) % Lymph # (Auto) 5.73 H (0.9-3.2) K/mm3 [place] # (Auto) 1.1 H (0.1-0.6) K/mm3 Eos # (Auto) 0.6 H (0-0.3) K/mm3 Baso # (Auto) 0.1 (0.0-0.1) K/mm3 Abs Immat Gran (auto) 0.07 H (0.00-0.031) K/mm3 Absolute Neuts (auto) 10.4 H (1.3-6.7) K/mm3 Absolute Nucleated RBC 0.000 (0.0-0.012) K/mm3 Nucleated RBC % 0.0 (0.0-0.2) % PT 13.0 (11.1-14.7) Seconds INR 1.0 APTT 28.9 (22.3-36.8) Seconds Sodium 134 L (137-145) mmol/L Potassium 2.7 L* (3.4-5.0) mmol/L Chloride 95 L (98-107) mmol/L Carbon Dioxide 29 (22-30) mmol/L Anion Gap 10 (4-12) mmol/L BUN 11 D (9-20) mg/dL Creatinine 0.83 (0.7-1.3) mg/dL Estim Creat Clear Calc 205 ml/min Estimated GFR > 60 (59 - ) Glucose 149 H (65-110) mg/dL Lactic Acid 2.2 H (0.7-2.0) mmol/L Calcium 9.0 (8.4-10.2) mg/dL Magnesium 2.1 (1.6-2.3) mg/dL Total Bilirubin 0.4 (0.2-1.3) mg/dL AST 32 (17-59) U/L ALT 27 (6-50) U/L Alkaline Phosphatase 100 (38-126) U/L Troponin I < 0.012 (0.000-0.034) ng/mL NT-Pro-B Natriuret Pep < 20 (19.9-100) pg/mL Total Protein 8.2 (6.3-8.2) g/dL Albumin 4.3 (3.5-5.1) g/dL Ethyl Alcohol < 10 (<10) mg/dL Imaging Data Radiologist's impression: ITS Impressions Chest X-Ray 03/18/25 11:41 IMPRESSION: Low lung volumes, without focal infiltrate or effusion appreciated. ECG Data EKG #1: Attestation: I personally reviewed and interpreted this ECG as follows: ECG completion date: 03/18/25 ECG completion time: 10:38 EKG Interpretation: tachycardia (141), sinus rhythm and NL axis Critical Care Time Critical Care Time Critical Care Time: Yes Total Critical Care Time: 40 Discharge Plan Discharge Clinical Impression: Acute hypokalemia, Sinus tachycardia, Cocaine use, Cannabis use disorder Patient Disposition: Still a Patient Condition: Guarded Prognosis
[2025-03-18] MEDS: LACTATED RINGERS 1,000 ML 999 ML IV CONT (10:47)
[2025-03-18] MEDS: LORazepam INJ (*CRX) 2 MG/ML VIAL 1 MG IV PUSH (10:48)
[2025-03-18 10:53] LABS: Hematocrit 46.9 % (42.0-52.0); Hemoglobin 15.1 g/dL (14.0-18.0); Immature Granulocyte Percent A 0.4 % (0-0.5); Lymphocytes Absolute Auto 5.73 K/mm3 (0.9-3.2); Mean Corpuscular HGB Conc 32.2 g/dl (32-36); Mean Corpuscular Hemoglobin 28.9 pg (26-34); Mean Corpuscular Volume 89.7 fl (80-100); Nucleated Red Blood Cells Absolute Auto 0.000 K/mm3 (0.0-0.012); Nucleated Red Blood Cells Perc 0.0 % (0.0-0.2); Platelet Count Result 388 k/mm3 (150-375); Red Blood Count 5.23 M/mm3 (4.6-6.20); White Blood Count 17.9 K/mm3 (4.5-10.0)
--- NOTE | 2025-03-18 10:56 | PC.NURSE ---
Pt given urinal, states he is unable to go at this time.
--- OUTSIDE RECORDS SUMMARY | 2025-03-18 10:56 | XMS_ITS | Continuity of Care Document ---
Author Organization [facility] [place] [address] [place] [address] [address] [place] [address] Phone Care Team Providers Care Grinding Wheel Inspector Name Role Phone Louis Cade Unavailable Unavailable Procedures Procedure Date Eye Exam, New Patient Refraction Vision Svcs Frames Purchases SV Hi Index Sph [place] To +/- 4 08 Lens-Index>1.66Plas;>1.80Glas 8 Tax - Medical Advance Directives Directive Yes / No Effective Date File Name No Information Encounters Encounter Description Practice Location Reason(s) For Visit Diagnoses Date Provider Providers Copied on Encounter [facility], [address] [place] [address] [address], [place], [place], [id number], [place] tel:[phone] [facility] No Information 8 Alyssia Myers. [address] [facility] [address], [place], [address], [place]. tel:[phone] [facility], [address] [place] [address] [address], [place], [place], [id number], [place] tel:[phone] [facility] No Information 8 [facility]. [address] [facility], [address], [place], [place], [id number], [place]. tel:[phone] Referring Provider: Louis Cade, [address], [address]. tel:[phone] humphreys Provider: Shruthi Acosta, [address] [facility], [place], [address]. tel:[phone] Family History Family Member Type Diagnosis Age At Onset No Information Payers Payer name Insurance type Covered republican ID Authoriza tion(s) No Information Social History [...]
--- OUTSIDE RECORDS SUMMARY | 2025-03-18 10:56 | XMS_ITS | Clinical Summary ---
Author Organization [facility] C Address [address] [facility] [place] [address] Care Team Providers Care Network Development Coordinator Name Role Phone Unavailable Primary Care Provider [...] contact us before. We'll get records from [facility]. He has outstanding labs from Dr. Parks. [...] provided. Assessment & Plan (10/23/2023 1:34 PM SUPERINTENDENT DISTRIBUTION): Chronic. Poorly controlled. Needs improvement. Patient is [...] 10/23/2023 Assessment & Plan (10/23/2023 1:34 PM SUPERINTENDENT DISTRIBUTION): Brief supportive counseling was provided. Patient was recommended to quit. He will consider Encounters Date Type Department Care Team Description 03/01/2025 Telephone [facility] Medical [facility] Primary Care at [address] [address] No, Physician from Last 3 [...] Asthma as cjhild Cellulitis Diagnosed 2023 at [place] Morbid obesity (HCC) Family History Medical History [...] on file Legal Sex Male 3:27 PM SUPERINTENDENT DISTRIBUTION Gender Identity Male 03/08/2024 7:01 PM CDT [...] ORDERABLES [place] - [place] [id number] [address] [place] [address] from Last 3 Months or Most Recently Relevant to Health Maintenance Insurance [facility]
--- OUTSIDE RECORDS SUMMARY | 2025-03-18 10:56 | XMS_ITS | Referral Summary ---
Author Organization [facility] C Address [address] [facility] [place] [address] Care Team Providers Care Hull Outfit Supervisor Name Role Phone Unavailable Primary Care Provider Unavailabl e Encounters Date Type Department Care Team Description 03/01/2025 Telephone [facility] Medical Group Primary Care at [address] [address] No, Physician from Last 3 [...] contact us before. We'll get records from [facility]. He has outstanding labs from Dr. Parks. [...] provided. Assessment & Plan (10/23/2023 1:34 PM DIMENSION WAREHOUSE SUPERVISOR): Chronic. Poorly controlled. Needs improvement. Patient is [...] 10/23/2023 Assessment & Plan (10/23/2023 1:34 PM DIMENSION WAREHOUSE SUPERVISOR): Brief supportive counseling was provided. Patient was [...] on file Legal Sex Male 3:27 PM DIMENSION WAREHOUSE SUPERVISOR Gender Identity Male 03/08/2024 7:01 PM CDT [...] ERAL ORDERABLES Edited Result - Final [place] [id number] [address] [place] [address] from Last 3 Months or Most Recently Relevant to Health Maintenance Insurance [facility] [facility]
[2025-03-18 11:10] LABS: INR 1.0; Prothrombin Time 13.0 Seconds (11.1-14.7)
[2025-03-18 11:11] LABS: Partial Thromboplastin Time 28.9 Seconds (22.3-36.8)
[2025-03-18 12:10] LABS: Alanine Aminotransferase 27 U/L (6-50); Albumin Level 4.3 g/dL (3.5-5.1); Alkaline Phosphatase 100 U/L (38-126); Anion Gap 10 mmol/L (4-12); Aspartate Amino Transferase 32 U/L (17-59); Bilirubin,Total 0.4 mg/dL (0.2-1.3); Blood Urea Nitrogen 11 mg/dL (9-20); Calcium 9.0 mg/dL (8.4-10.2); Carbon Dioxide 29 mmol/L (22-30); Chloride 95 mmol/L (98-107); Estimated CRCL calculation 205 ml/min; Estimated Glomerular Filt Rate > 60; Glucose 149 mg/dL (65-110); Magnesium 2.1 mg/dL (1.6-2.3); Potassium 2.7 mmol/L (3.4-5.0); Sodium 134 mmol/L (137-145); Total Protein 8.2 g/dL (6.3-8.2)
[2025-03-18 12:22] LABS: NT Pro B Type Natriuretic Pept < 20 pg/mL (19.9-100); Troponin I < 0.012 ng/mL (0.000-0.034)
[2025-03-18] MEDS: POTASSIUM CHLORIDE 20 MEQ ER TABLET 40 MEQ PO (12:44)
[2025-03-18] MEDS: POTASSIUM CHLORIDE INJ 40 MEQ in SODIUM CHLORIDE 0.9% IV 500 ML 130 MEQ IVPB (13:10)
[2025-03-18 13:31] LABS: Add Urine Microscopic? YES; Appearance Urine Clear (Clear); Glucose Urine UA Negative (Negative); Leukocyte Esterase Ur Negative LEU/UL (Negative); Need Manual Microscopic Reviewed; Nitrate Urine Negative (Negative); Specific Grav Ur 1.015 (1.001-1.035)
[2025-03-18 13:32] LABS: Cannabinoid Screen Urine Positive (Negative)
--- NOTE | 2025-03-18 14:31 | P.HP_ITS ---
H&P: HPI History of Present Illness Date/Time: 03/18/25 14:31 Chief Complaint: Palpitations Narrative: 29-year-old male with obesity and hypertension presents the hospital with palpitations. Patient states that he did cocaine yesterday and gummies today about 400 mg. HPI is limited patient is extremely lethargic from all like cannabinoids in his system. It sounds like due to the cocaine the patient could not sleep so be it a bungee gummies fall fell asleep. He became paranoid told his mom to bring him to the hospital. No nausea or vomiting. Lab work shows leukocytosis at 17.9, sodium of 134, potassium 2.7, chloride of 95, lactic acid 2.2, troponin negative, UA negative for infection, you talk shows cocaine and cannabinoids negative for ethanol. Chest x-ray shows no acute process. EKG shows sinus rhythm QTC 555 Review of Systems Review of Systems: ROS unobtainable: Yes unobtainable due to mental status PMFSH Past Medical History Medical History History of hypertension Obesity Social History Social History (Updated 03/18/25 @ 10:43 by Agueda Patton MD) Smoking status: Current every day smoker Tobacco type: e-cigarettes/vaping Alcohol intake: never Substance use: current Substance use type: marijuana and crack/cocaine Gender identity (if verbalized by the patient): Male Spiritual care concerns: No Meds Home Medications and Allergies Home Medications ?Medication ?Instructions ?Recorded ?Confirmed ?Type hydrochlorothiazide 12.5 mg capsule 12.5 mg PO DAILY #30 caps 11/21/23 03/18/25 Rx Allergies Allergy/AdvReac Type Severity Reaction Status Date / Time No Known Allergies Allergy Verified 03/18/25 10:44 Vital Signs Vital Signs - 24 hr 03/18/25 10:33 03/18/25 10:42 03/18/25 10:46 Temperature Pulse Rate 141 H 146 H 138 H Respiratory Rate 18 25 H Blood Pressure 199/99 H Pulse Oximetry 100 99 Oxygen Delivery Room Air Oxygen Flow Rate 03/18/25 10:55 03/18/25 11:00 03/18/25 11:15 Temperature Pulse Rate 128 H 130 H Respiratory Rate 16 18 Blood Pressure Pulse Oximetry 98 100 Oxygen Delivery Nasal Cannula Oxygen Flow Rate 2 03/18/25 11:30 03/18/25 11:31 03/18/25 11:45 Temperature Pulse Rate 126 H 126 H 121 H Respiratory Rate 22 H 22 H 21 H Blood Pressure 161/112 H Pulse Oximetry 99 100 99 Oxygen Delivery Oxygen Flow Rate 03/18/25 12:00 03/18/25 13:46 Temperature 97.8 F Pulse Rate 119 H 119 H Respiratory Rate 22 H 28 H Blood Pressure 138/60 Pulse Oximetry 97 99 Oxygen Delivery Oxygen Flow Rate Exam Narrative: General: well appearing, appears stated age. Drowsy HEENT: normocephalic, atraumatic. Mucous membranes moist. EOMI, PERRLA, bilateral sclera anicteric, no conjunctival injection. Neck supple without JVD, lymphadenopathy, or bruit. Respiratory: Diminished to ascultation bilaterally. No rales/rhonic/wheezes. Apnea Cardiovascular: Regular rate and rhythm, normal S1-S2 upon ascultation. No murmurs, rubs, or clicks. PMI is nondisplaced, capillary refill less than 3 second. Abdomen: Morbidly obese Soft, round, no pulsatile masses, nondistended and nontender. No rebound, no guarding. No CVA tenderness, no hepatosplenomegaly. Bowel sounds present to all four quadrants. No high pitch or tinkling sounds, resonant to percussion. Extremities: No cyanosis, clubbing, or edema present. Pulses are palpable 2/2. Active ROM to all four extremities. Neuro: Alert and orientated x 4. PERRLA. Cranial nerves 2-12 intact without focal deficit. Skin: Warm, dry, and intact, without rash, erythema, or lesion. Psych: pleasant, cooperative, normal speech, normal affect, no hallucinations, no dysarthia H&P: Results Labs Labs: Short CBC 03/18/25 Range/Units 10:47 WBC 17.9 H (4.5-10.0) K/mm3 Hgb 15.1 (14.0-18.0) g/dL Hct 46.9 (42.0-52.0) % Plt Count 388 H D (150-375) k/mm3 BMP 03/18/25 10:46 Sodium 134 L Potassium 2.7 L* Chloride 95 L Carbon Dioxide 29 BUN 11 D Creatinine 0.83 Glucose 149 H Calcium 9.0 Cardiac Enzymes 03/18/25 Range/Units 10:46 Troponin I < 0.012 (0.000-0.034) ng/mL Liver Function 03/18/25 Range/Units 10:46 Total Bilirubin 0.4 (0.2-1.3) mg/dL AST 32 (17-59) U/L ALT 27 (6-50) U/L Alkaline Phosphatase 100 (38-126) U/L Albumin 4.3 (3.5-5.1) g/dL Urine 03/18/25 Range/Units 12:56 Urine Color Yellow (Yellow) Urine Appearance Clear (Clear) Urine pH 7.0 (5.0-9.0) Ur Specific [place] 1.015 (1.001-1.035) Urine Protein 1+ H (Negative) mg/dL Urine Glucose (UA) Negative (Negative) mg/dL Assessment and Plan Assessment and plan (1) BMI 70 and over, adult: Code(s): Z68.45 - Body mass index [BMI] 70 or greater, adult Status: Acute (2) Cocaine use: Code(s): F14.90 - Cocaine use, unspecified, uncomplicated Status: Acute Assessment and Plan: Case management consulted Trend troponins (3) Cannabis use disorder: Code(s): F12.90 - Cannabis use, unspecified, uncomplicated Status: Acute Assessment and Plan: supportive care (4) Sinus tachycardia: Code(s): R00.0 - Tachycardia, unspecified Status: Acute Assessment and Plan: Likely due to cannabinoids and cocaine IVF for hydration (5) Acute hypokalemia: Code(s): E87.6 - Hypokalemia Status: Acute Assessment and Plan: Likely due to hydrochlorothiazide Replete as needed BMP in the morning (6) Hypertension: Code(s): I10 - Essential (primary) hypertension Status: Acute Assessment and Plan: Currently holding hydrochlorothiazide Quality VTE Prophylaxis VTE prophylaxis: mechanical ordered and pharmacologic ordered Hospitalist MIPS Advance Care Plan I have confirmed that the patient's Advanced Care Plan is present, code status is documented, or surrogate decision maker is listed in patient medical record.: Yes Medication Reconciliation I have utilized all available resources to obtain, update and review the patients current medications (includes all prescriptions, OTC, herbals, cannabis, and nutritional supplements).: Yes
--- NOTE | 2025-03-18 14:41 | PC.NURSE ---
patient being admitted to IMU with potassium infusing per protocol
--- NOTE | 2025-03-18 14:53 | ADMGEN ---
This patient, Dev Mon, was admitted to IMU Room 212-01 at 1439. Patient/family oriented to hospital policies and general routines including ID bracelet, bed and alarms, visiting hours, pain management, procedures, bathroom and other care routines, personal items, smoking policy, room service/diet, and visiting hours. Information on how to activate the Rapid Response Team has been discussed. Patient/Family are encouraged to report perceived risks to care and to ask questions if they do not understand what they are told or what they should do.
[2025-03-18] MEDS: SODIUM CHLORIDE 0.9% IV 1,000 ML 999 ML IV CONT (19:00)
[2025-03-18] MEDS: SODIUM CHLORIDE 0.9% IV 1,000 ML 100 ML IV CONT (20:05)
[2025-03-19] VITALS (7 sets, daily range): BP systolic 119–131; BP diastolic 68–78; PULSE 78–100; RESP 20; TEMP 36.9; O2SAT 97–99
[2025-03-19 00:21] LABS: Troponin I < 0.012 ng/mL (0.000-0.034)
[2025-03-19 02:31] LABS: Hematocrit 43.9 % (42.0-52.0); Hemoglobin 13.6 g/dL (14.0-18.0); Immature Granulocyte Percent A 0.3 % (0-0.5); Lymphocytes Absolute Auto 2.91 K/mm3 (0.9-3.2); Mean Corpuscular HGB Conc 31.0 g/dl (32-36); Mean Corpuscular Hemoglobin 28.6 pg (26-34); Mean Corpuscular Volume 92.2 fl (80-100); Nucleated Red Blood Cells Absolute Auto 0.000 K/mm3 (0.0-0.012); Nucleated Red Blood Cells Perc 0.0 % (0.0-0.2); Platelet Count Result 266 k/mm3 (150-375); Red Blood Count 4.76 M/mm3 (4.6-6.20); White Blood Count 10.7 K/mm3 (4.5-10.0)
[2025-03-19 02:48] LABS: Anion Gap 4 mmol/L (4-12); Blood Urea Nitrogen 9 mg/dL (9-20); Calcium 8.6 mg/dL (8.4-10.2); Carbon Dioxide 32 mmol/L (22-30); Chloride 100 mmol/L (98-107); Estimated CRCL calculation 265 ml/min; Estimated Glomerular Filt Rate > 60; Glucose 99 mg/dL (65-110); Potassium 4.0 mmol/L (3.4-5.0); Sodium 136 mmol/L (137-145)
[2025-03-19 02:58] LABS: Troponin I < 0.012 ng/mL (0.000-0.034)
[2025-03-19] MEDS: SODIUM CHLORIDE 0.9% IV 1,000 ML 100 ML IV CONT (06:29)
[2025-03-19] MEDS: POTASSIUM CHLORIDE 20 MEQ ER TABLET PO (08:36)
[2025-03-19] MEDS: ENOXAPARIN 40 MG/0.4 ML SYRINGE SUB-Q (08:37)
[2025-03-19 09:41] LABS: Creatine Kinase 36 U/L (55-170)
--- NOTE | 2025-03-19 11:19 | PM.DS ---
DS: Admitting Diagnosis Discharge Date 03/19/25 Admitting Diagnosis Palpitations DS: Summary Hospital Course Hospital Course: Patient is clinically table and his HR is close to normal, will discharge home today with his mother patient stats he does cocaine no most weekends and does not get withdrawal symptoms, his mother is present in the room, patient is clinically stable, will discharge home today. his mother is instructed if any symptoms worsen to go to nearest ER. Time Spent with Patient Time attestation: Total time spent providing and/or coordinating discharge services: Exam Narrative: General: well appearing, appears stated age. Drowsy, morbidly obese HEENT: normocephalic, atraumatic. Mucous membranes moist. bilateral sclera anicteric, no conjunctival injection. Neck supple, lymphadenopathy Respiratory: Diminished to ascultation bilaterally. No rales/rhonic/wheezes. Apnea Cardiovascular: Regular rate and rhythm, normal S1-S2 upon ascultation. Abdomen: Morbidly obese Soft, round Extremities: No cyanosis, clubbing, or edema present. Neuro: Alert and orientated x 4, without focal deficit. Skin: Warm, dry, and intact, without rash, erythema, or lesion. Psych: pleasant, cooperative, normal speech, normal affect, no hallucinations, no dysarthia DS: Data Data Completed and Pending Labs on day of discharge: Labs from last 24 hours 03/19/25 03/18/25 03/18/25 02:06 23:45 13:45 WBC 10.7 H RBC 4.76 Hgb 13.6 L Hct 43.9 MCV 92.2 MCH 28.6 MCHC 31.0 L RDW 13.4 Plt Count 266 MPV 11.0 H Immature Gran % (Auto) 0.3 Neut % (Auto) 64.7 Lymph % (Auto) 27.1 [place] % (Auto) 5.3 Eos % (Auto) 2.1 Baso % (Auto) 0.5 Lymph # (Auto) 2.91 [place] # (Auto) 0.6 Eos # (Auto) 0.2 Baso # (Auto) 0.1 Abs Immat Gran (auto) 0.03 Absolute Neuts (auto) 7.0 H Absolute Nucleated RBC 0.000 Nucleated RBC % 0.0 Sodium 136 L Potassium 4.0 Chloride 100 Carbon Dioxide 32 H Anion Gap 4 BUN 9 Creatinine 0.63 L Estim Creat Clear Calc 265 Estimated GFR > 60 Glucose 99 Lactic Acid 1.6 Calcium 8.6 Magnesium Total Bilirubin AST ALT Alkaline Phosphatase Total Creatine Kinase 36 L Troponin I < 0.012 < 0.012 NT-Pro-B Natriuret Pep Total Protein Albumin Urine Color Urine Appearance Urine pH Ur Specific [place] Urine Protein Urine Glucose (UA) Urine Ketones Ur Blood (Man) Urine Nitrate Urine Bilirubin Urine Urobilinogen Add Ur Microanalysis Leukocyte Esterase Rfl Urine RBC Urine WBC Ur Squamous Epith Cells Urine Bacteria Urine Casts Urine Opiates Screen Urine Methadone Screen Ur Barbiturates Screen Ur Phencyclidine Scrn Ur Amphetamine Screen U Benzodiazepines Scrn Urine Cocaine Screen U Cannabinoids Screen 03/18/25 03/18/25 03/18/25 12:56 11:18 10:46 WBC RBC Hgb Hct MCV MCH MCHC RDW Plt Count MPV Immature Gran % (Auto) Neut % (Auto) Lymph % (Auto) [place] % (Auto) Eos % (Auto) Baso % (Auto) Lymph # (Auto) [place] # (Auto) Eos # (Auto) Baso # (Auto) Abs Immat Gran (auto) Absolute Neuts (auto) Absolute Nucleated RBC Nucleated RBC % Sodium 134 L Potassium 2.7 L* Chloride 95 L Carbon Dioxide 29 Anion Gap 10 BUN 11 D Creatinine 0.83 Estim Creat Clear Calc 205 Estimated GFR > 60 Glucose 149 H Lactic Acid 2.2 H Calcium 9.0 Magnesium 2.1 Total Bilirubin 0.4 AST 32 ALT 27 Alkaline Phosphatase 100 Total Creatine Kinase Troponin I < 0.012 NT-Pro-B Natriuret Pep < 20 Total Protein 8.2 Albumin 4.3 Urine Color Yellow Urine Appearance Clear Urine pH 7.0 Ur Specific [place] 1.015 Urine Protein 1+ H Urine Glucose (UA) Negative Urine Ketones Trace H Ur Blood (Man) Negative Urine Nitrate Negative Urine Bilirubin Negative Urine Urobilinogen 0.2 Add Ur Microanalysis Reviewed Leukocyte Esterase Rfl Negative Urine RBC 0-2 Urine WBC 0-5 Ur Squamous Epith Cells None seen Urine Bacteria None seen Urine Casts 11-20 Urine Opiates Screen Negative Urine Methadone Screen Negative Ur Barbiturates Screen Negative Ur Phencyclidine Scrn Negative Ur Amphetamine Screen Negative U Benzodiazepines Scrn Negative Urine Cocaine Screen Positive A U Cannabinoids Screen Positive A Discharge Plan Discharge Attending physician on discharge: Greg Farrar Consulting providers: Merly Mcgrath; Duran Denny; Ayesha Carrizales Discharging Clinician: Gonzalez Au Patient Disposition: Home Activity: as tolerated Diet: heart healthy Discharge Instructions: patient stats he does cocaine no most weekends and does not get withdrawal symptoms, his mother is present in the room, patient is clinically stable, will discharge home today. his mother is instructed if any symptoms worsen to go to nearest ER. Patient Instructions: Antibiotic Form, Heart Healthy Diet (DC), Polysubstance Use Disorder (DC), Hypertension (DC) Patient Language: Martiniquais Stand Alone Forms: General Discharge Information Follow-up/Referrals: UNKNOWN,DOCTOR [Primary Care Provider] - Discharge Medications: Continued hydrochlorothiazide 12.5 mg capsule 12.5 mg PO DAILY Qty: 30 0RF Date of admission: 03/18/25 12:56 Primary Care Provider: UNKNOWN,DOCTOR Admitting Provider: Greg Farrar Attending physician on admission: Gonzalez Au Condition: Stable
== END 2025-03-19 11:58 | disposition home or self-care (01) | DRG 207 ==
LOC: ANHED 10:54 → ANHIMU 14:00
PROVIDERS: Nurse Practitioner Gerontology; Admitting Provider Internal Medicine; Emergency Provider General Practice; Visit Provider Family Medicine
DX: R00.2 Palpitations (principal); T40.5X5A Adverse effect of cocaine, initial encounter; F14.90 Cocaine use, unspecified, uncomplicated; F17.290 Nicotine dependence, other tobacco product, uncomplicated; E66.9 Obesity, unspecified; Z68.45 Body mass index [BMI] 70 or greater, adult; F12.90 Cannabis use, unspecified, uncomplicated; E87.6 Hypokalemia; I10 Essential (primary) hypertension
CPT/HCPCS: 36415; 71045; 80048; 80053; 80307; 81001; 82077; 82550; 83605; 83735; 83880; 84484; 85025; 85610; 85730; 93005; 96374; 96375; 99285; A9270; J1650; J2060; J3480; J7030; J7040; J7120